=== PATIENT | female | born 1945 | race American Indian/Alaskan Native ===

== ENCOUNTER 2019-08-01 12:39 | Inpatient (IN) | payer MEDICARE ==
[2019-08-09 10:33] VITALS: BP 114/55
== END 2019-08-09 11:45 | disposition home health service (06) | DRG 682 ==
LOC: 2B-ACE 12:39 → UNDOADMIN 12:39 → 2B-ACE 13:35
PROVIDERS: ADMIT Internal Medicine Hematology & Oncology; ATTEND Internal Medicine Hematology & Oncology
DX: N17.9 Acute kidney failure, unspecified (principal); G93.41 Metabolic encephalopathy; E43 Unspecified severe protein-calorie malnutrition; D61.810 Antineoplastic chemotherapy induced pancytopenia; C90.00 Multiple myeloma not having achieved remission; Z68.1 Body mass index [BMI] 19.9 or less, adult; E87.2 Acidosis; E86.0 Dehydration; I95.9 Hypotension, unspecified; R41.0 Disorientation, unspecified; T45.1X5A Adverse effect of antineoplastic and immunosuppressive drugs, initial encounter; D63.8 Anemia in other chronic diseases classified elsewhere; I12.9 Hypertensive chronic kidney disease with stage 1 through stage 4 chronic kidney disease, or unspecified chronic kidney disease; N18.9 Chronic kidney disease, unspecified; Z79.899 Other long term (current) drug therapy; Z87.891 Personal history of nicotine dependence; Y92.89 Other specified places as the place of occurrence of the external cause
CPT/HCPCS: 36415; 70551; 71045; 74018; 76770; 80048; 80053; 81001; 82570; 84156; 84166; 84300; 85007; 85025; 85027; 86334; 87086; 87116; 94640; 94760; G0378; J1956; J2060; J2405; J3246; J3420; Q0167